=== PATIENT | male | born 1980 | race Caucasian/White ===

== ENCOUNTER 2016-09-29 13:14 | Inpatient (IN) | payer OTHER ==
[2016-09-29] MEDS ORDERED: SODIUM CHLORIDE 0.9% 1,000 ML IV STA (13:45)
[2016-09-29] MEDS ORDERED: RX INFO: IV CONTRAST WAS GIVEN 1 EACH MISC MISCELLANE PRN (13:45)
[2016-09-29] MEDS ORDERED: ONDANSETRON 4 MG/2 ML VIAL IVP STA (13:45)
[2016-09-29] MEDS ORDERED: HYDROmorphone 1 MG/ML 1 ML SYRINGE IVP STA (13:45)
--- NOTE | 2016-09-29 14:12 | ED ---
Abdominal Pain HPI - General Chief Complaint: Abdominal Pain Stated Complaint: Abd Pain Time Seen by Provider: 09/29/16 13:39 Source: patient, RN notes reviewed, old records reviewed Mode of arrival: ambulatory Limitations: no limitations - History of Present Illness Initial Comments: This is a 35-year-old male chief complaint of lower abdominal pain for the past day. Patient reports that the pain feels very sharp and stabbing. Patient reports it was worse when he was going over the bumps in the car. Denies any vomiting or feels nauseated. Reports he's had normal bowel movements. He denies any surgical history. Patient denies any previous issues with this before. Patient states he's had no fever or chills, dysuria, hematuria or melena or hematochezia. Patient reports last bowel movement was yesterday. He reports he did not eat anything today. - Related Data Home Medications Medication Instructions Recorded Confirmed Ibuprofen [Motrin] 200 - 400 mg PO Q6HR PRN 09/29/16 09/29/16 Allergies Allergy/AdvReac Type Severity Reaction Status Date / Time cefaclor [From Ceclor] Allergy Unknown Verified 09/29/16 14:00 Childhood Review of Systems ROS Statement: Those systems with pertinent positive or pertinent negative responses have been documented in the HPI. ROS Other: All systems not noted in ROS Statement are negative. Past Medical History Past Medical History: Cancer, Hypertension History of Any Multi-Drug Resistant Organisms: None Reported Additional Past Surgical History / Comment(s): pyloric stenosis Past Psychological History: Anxiety, Depression Smoking Status: Current every day smoker Past Alcohol Use History: Daily Past Drug Use History: None Reported General Exam - General Exam Comments Initial Comments: This is a 35-year-old male. Patient appears in discomfort. Limitations: no limitations General appearance: alert, in no apparent distress Head exam: Present: atraumatic, normocephalic, normal inspection Eye exam: Present: normal appearance, PERRL, EOMI. Absent: scleral icterus, conjunctival injection, periorbital swelling ENT exam: Present: normal exam, normal oropharynx, mucous membranes moist Neck exam: Present: normal inspection. Absent: tenderness, meningismus, lymphadenopathy Respiratory exam: Present: normal lung sounds bilaterally. Absent: respiratory distress, wheezes, rales, rhonchi, stridor Cardiovascular Exam: Present: regular rate, normal rhythm, normal heart sounds. Absent: systolic murmur, diastolic murmur, rubs, gallop, clicks GI/Abdominal exam: Present: tenderness (Diffuse lower abdominal tenderness.), guarding, normal bowel sounds. Absent: soft, distended, rebound, rigid Extremities exam: Present: normal inspection, full ROM, normal capillary refill. Absent: tenderness, pedal edema, joint swelling, calf tenderness Back exam: Present: normal inspection Neurological exam: Present: alert, oriented X3, CN II-XII intact Psychiatric exam: Present: normal affect, normal mood Skin exam: Present: warm, dry, intact, normal color. Absent: rash Course Vital Signs 09/29/16 09/29/16 09/29/16 13:32 14:45 15:44 Temperature 98.1 F Pulse Rate 87 88 101 H Respiratory 17 20 20 Rate Blood Pressure 127/62 132/74 133/72 O2 Sat by Pulse 99 99 96 Oximetry 09/29/16 09/29/16 16:45 17:44 Temperature Pulse Rate 98 93 Respiratory 16 16 Rate Blood Pressure 122/63 92/45 O2 Sat by Pulse 97 96 Oximetry Medical Decision Making - Medical Decision Making This is a 35-year-old male chief complaint of lower abdominal pain for the past day. Patient reports that the pain feels very sharp and stabbing. Patient reports it was worse when he was going over the bumps in the car. Denies any vomiting or feels nauseated. Reports he's had normal bowel movements. He denies any surgical history. Patient denies any previous issues with this before. Patient states he's had no fever or chills, dysuria, hematuria or melena or hematochezia. Patient reports last bowel movement was yesterday. She has significant tenderness on exam. Patient was given IV pain medication and fluids. Patient's CT shows acute diverticulitis. Patient started on IV Levaquin and Flagyl. Patient will be admitted for pain control antibiotics. Lab work showed elevated white count of 18.6. Patient agrees to the admission. Patient's history plan will comply. We will consult Dr. Calle. - Lab Data Result diagrams: 09/29/16 14:07 09/29/16 14:07 Lab Results 09/29/16 09/29/16 09/29/16 Range/Units 14:07 14:07 14:07 WBC 18.4 H (3.8-10.6) k/uL RBC 5.28 (4.30-5.90) m/uL Hgb 16.1 (13.0-17.5) gm/dL Hct 44.2 (39.0-53.0) % MCV 83.7 (80.0-100.0) fL MCH 30.4 (25.0-35.0) pg MCHC 36.3 (31.0-37.0) g/dL RDW 13.4 (11.5-15.5) % Plt Count 188 (150-450) k/uL Neutrophils % 90 % Lymphocytes % 4 % Monocytes % 5 % Eosinophils % 0 % Basophils % 0 % Neutrophils # 16.6 H (1.3-7.7) k/uL Lymphocytes # 0.8 L (1.0-4.8) k/uL Monocytes # 0.9 (0-1.0) k/uL Eosinophils # 0.1 (0-0.7) k/uL Basophils # 0.0 (0-0.2) k/uL PT (9.0-12.0) sec INR (<1.1) APTT (22.0-30.0) sec Sodium 139 (137-145) mmol/L Potassium 3.4 L (3.5-5.1) mmol/L Chloride 104 (98-107) mmol/L Carbon Dioxide 25 (22-30) mmol/L Anion Gap 10 mmol/L BUN 13 (9-20) mg/dL Creatinine 0.89 (0.66-1.25) mg/dL Est GFR (MDRD) Af Amer >60 (>60 ml/min/1.73 sqM) Est GFR (MDRD) Non-Af >60 (>60 ml/min/1.73 sqM) Glucose 99 (74-99) mg/dL Plasma Lactic Acid Alex 0.9 (0.7-2.0) mmol/L Calcium 9.3 (8.4-10.2) mg/dL Total Bilirubin 2.0 H (0.2-1.3) mg/dL AST 19 (17-59) U/L ALT 29 (21-72) U/L Alkaline Phosphatase 69 (38-126) U/L Total Protein 7.3 (6.3-8.2) g/dL Albumin 4.5 (3.5-5.0) g/dL Amylase <30 L (30-110) U/L Lipase 66 (23-300) U/L Urine Color Urine Appearance (Clear) Urine pH (5.0-8.0) Ur Specific [place] (1.001-1.035) Urine Protein (Negative) Urine Glucose (UA) (Negative) Urine Ketones (Negative) Urine Blood (Negative) Urine Nitrite (Negative) Urine Bilirubin (Negative) Urine Urobilinogen (<2.0) mg/dL Ur Leukocyte Esterase (Negative) Urine RBC (0-5) /hpf Urine WBC (0-5) /hpf Urine Mucus (None) /hpf 09/29/16 09/29/16 Range/Units 14:07 14:07 WBC (3.8-10.6) k/uL RBC (4.30-5.90) m/uL Hgb (13.0-17.5) gm/dL Hct (39.0-53.0) % MCV (80.0-100.0) fL MCH (25.0-35.0) pg MCHC (31.0-37.0) g/dL RDW (11.5-15.5) % Plt Count (150-450) k/uL Neutrophils % % Lymphocytes % % Monocytes % % Eosinophils % % Basophils % % Neutrophils # (1.3-7.7) k/uL Lymphocytes # (1.0-4.8) k/uL Monocytes # (0-1.0) k/uL Eosinophils # (0-0.7) k/uL Basophils # (0-0.2) k/uL PT 11.1 (9.0-12.0) sec INR 1.1 (<1.1) APTT 24.1 (22.0-30.0) sec Sodium (137-145) mmol/L Potassium (3.5-5.1) mmol/L Chloride (98-107) mmol/L Carbon Dioxide (22-30) mmol/L Anion Gap mmol/L BUN (9-20) mg/dL Creatinine (0.66-1.25) mg/dL Est GFR (MDRD) Af Amer (>60 ml/min/1.73 sqM) Est GFR (MDRD) Non-Af (>60 ml/min/1.73 sqM) Glucose (74-99) mg/dL Plasma Lactic Acid Alex (0.7-2.0) mmol/L Calcium (8.4-10.2) mg/dL Total Bilirubin (0.2-1.3) mg/dL AST (17-59) U/L ALT (21-72) U/L Alkaline Phosphatase (38-126) U/L Total Protein (6.3-8.2) g/dL Albumin (3.5-5.0) g/dL Amylase (30-110) U/L Lipase (23-300) U/L Urine Color Yellow Urine Appearance Cloudy (Clear) Urine pH 6.0 (5.0-8.0) Ur Specific [place] 1.018 (1.001-1.035) Urine Protein 1+ H (Negative) Urine Glucose (UA) Negative (Negative) Urine Ketones Negative (Negative) Urine Blood Negative (Negative) Urine Nitrite Negative (Negative) Urine Bilirubin Negative (Negative) Urine Urobilinogen <2.0 (<2.0) mg/dL Ur Leukocyte Esterase Trace H (Negative) Urine RBC 3 (0-5) /hpf Urine WBC 7 H (0-5) /hpf Urine Mucus Many H (None) /hpf - Radiology Data Radiology results: report reviewed CT abdomen and pelvis shows acute diverticulitis. Disposition Clinical Impression: Acute diverticulitis Disposition: HOME SELF-CARE Condition: Good Referrals: None,Stated [Primary Care Provider] - 1-2 days Time of Disposition: 16:14
[2016-09-29 14:32] LABS: Appearance,Urine Cloudy (Clear); Basophils % (A) 0 %; Bilirubin,Urine Negative (Negative); Eosinophils # (A) 0.1 k/uL (0-0.7); Eosinophils % (A) 0 %; Glucose,Urine (UA) Negative (Negative); HCT 44.2 % (39.0-53.0); HDW 2.69; HGB 16.1 gm/dL (13.0-17.5); Ketones,Urine Negative (Negative); Leukocyte Esterase,Urine Trace (Negative); Luc # (Auto) 0.07; Luc % (Auto) 0; Lymphocytes # (A) 0.8 k/uL (1.0-4.8); Lymphocytes % (A) 4 %; MCH 30.4 pg (25.0-35.0); MCHC 36.3 g/dL (31.0-37.0); MCV 83.7 fL (80.0-100.0); Mean Platelet Volume 7.4; Monocytes # (A) 0.9 k/uL (0-1.0); Monocytes % (A) 5 %; Mucus,Urine Many /hpf; Neutrophils # (A) 16.6 k/uL (1.3-7.7); Neutrophils % (A) 90 %; Nitrite,Urine Negative (Negative); Particle Count 24903; Protein,Urine 1+ (Negative); RBC 5.28 m/uL (4.30-5.90); RBC,Urine 3 /hpf (0-5); RDW 13.4 % (11.5-15.5); Specific Gravity,Urine 1.018 (1.001-1.035); UA Billing (MACRO vs. MICRO) MICRO; Urobilinogen,Urine <2.0 mg/dL (<2.0); WBC 18.4 k/uL (3.8-10.6); WBC (Perox) 17.57; WBC,Urine 7 /hpf (0-5)
[2016-09-29 14:35] LABS: ALT 29 U/L (21-72); AST 19 U/L (17-59); Alkaline Phosphatase 69 U/L (38-126); Amylase <30 U/L (30-110); Anion Gap 10 mmol/L; Blood Urea Nitrogen 13 mg/dL (9-20); Calcium 9.3 mg/dL (8.4-10.2); Carbon Dioxide 25 mmol/L (22-30); Chloride 104 mmol/L (98-107); Glucose 99 mg/dL (74-99); Non-African American GFR(MDRD) >60 (>60 ml/min/1.73 sqM); Potassium 3.4 mmol/L (3.5-5.1); Sodium 139 mmol/L (137-145); Total Protein 7.3 g/dL (6.3-8.2)
[2016-09-29 14:36] LABS: INR 1.1 (<1.1); Partial Thromboplastin Time 24.1 sec (22.0-30.0); Prothrombin Time 11.1 sec (9.0-12.0)
--- NOTE | 2016-09-29 14:49 | CT ---
EXAMINATION TYPE: CT abdomen pelvis w con DATE OF EXAM: 09/29/2016 COMPARISON: NONE HISTORY: Patient complains of periumbilical and generalized pelvic pain. CT DLP: 1244.3 mGycm Automated exposure control for dose reduction was used. TECHNIQUE: Helical acquisition of images from the lung bases through the pelvis have been completed. CONTRAST: Performed without Oral Contrast and with IV Contrast, patient injected with 100 mL of Omnipaque 300. FINDINGS: LUNG BASES: No significant abnormality is appreciated. AORTA: No significant abnormality is appreciated. LIVER/GB: There is a vague hypodensity in the posterior right lobe inferiorly measuring 8 mm there is indeterminate and could represent a small hemangioma. The gallbladder is normal. PANCREAS: No significant abnormality is seen. SPLEEN: No significant abnormality is seen. ADRENALS: No significant abnormality is seen. KIDNEYS: No significant abnormality is seen. REPRODUCTIVE ORGANS: No significant abnormality is seen BOWEL: Abnormal increased attenuation is present adjacent to the sigmoid colon, there is extensive d iverticular changes at this level, abnormal increased attenuation in the pericolonic fat . FREE AIR: No Free Air visible. ASCITES: Minimal free fluid in the pelvis. PELVIC ADENOPATHY: None visualized. RETROPERITONEAL ADENOPATHY: No Retroperitoneal Adenopathy visible. URINARY BLADDER: No significant abnormality is seen. OSSEOUS STRUCTURES: No significant abnormality is seen. IMPRESSION: FINDINGS COMPATIBLE WITH DIVERTICULITIS. NO EVIDENT ABSCESS OR EXTRALUMINAL AIR. ADDITIONAL FINDINGS ABOVE.
[2016-09-29] MEDS ORDERED: metroNIDAZOLE 500 MG TAB PO STA (15:49)
[2016-09-29] MEDS ORDERED: CIPROFLOXACIN HCL 500 MG TAB PO STA (15:49)
[2016-09-29] MEDS ORDERED: metroNIDAZOLE-NS PMX 500 MG in SALINE 1 100ML.BAG IVPB STA (15:57)
[2016-09-29] MEDS ORDERED: LEVOFLOXACIN 750MG-D5W PMX 750 MG in DEXTROSE/WATER 1 150ML.BAG IVPB STA (15:57)
[2016-09-29] MEDS ORDERED: SODIUM CHLORIDE 0.9% 1,000 ML IV ONE (15:58)
[2016-09-29] MEDS ORDERED: ACETAMINOPHEN TAB 325 MG TAB PO PRN (16:14)
[2016-09-29] MEDS ORDERED: NALOXONE 0.4 MG/ML 1 ML VIAL IV PRN (16:14)
[2016-09-29] MEDS ORDERED: ONDANSETRON 4 MG/2 ML VIAL IVP PRN (16:14)
[2016-09-29] MEDS ORDERED: HYDROmorphone 1 MG/ML 1 ML SYRINGE IV PRN (16:14)
[2016-09-29] MEDS ORDERED: KETOROLAC 30 MG/ML 1 ML VIAL IVP PRN (16:14)
[2016-09-29] MEDS: SODIUM CHLORIDE 0.9% 1,000 ML IV SCH (20:32)
[2016-09-29 22:41] VITALS: BMI 33.0
[2016-09-30 00:26] VITALS: RESP 18
[2016-09-30] MEDS: metroNIDAZOLE-NS PMX 500 MG in SALINE 1 100ML.BAG IVPB SCH ×2 (00:53→06:09)
[2016-09-30] MEDS: SODIUM CHLORIDE 0.9% 1,000 ML IV SCH ×2 (05:26→09:15)
[2016-09-30 07:44] VITALS: BP 128/75; PULSE 64; TEMP 97.8
[2016-09-30 10:09] LABS: Basophils # (A) 0.1 k/uL (0-0.2); Basophils % (A) 1 %; CH 29.6; Eosinophils # (A) 0.1 k/uL (0-0.7); Eosinophils % (A) 1 %; HDW 2.67; HGB 14.1 gm/dL (13.0-17.5); Luc # (Auto) 0.11; Luc % (Auto) 1; Lymphocytes # (A) 1.4 k/uL (1.0-4.8); Lymphocytes % (A) 11 %; MCH 30.7 pg (25.0-35.0); MCHC 36.1 g/dL (31.0-37.0); MCV 85.1 fL (80.0-100.0); Mean Platelet Volume 7.4; Monocytes # (A) 0.6 k/uL (0-1.0); Monocytes % (A) 5 %; Neutrophils # (A) 10.7 k/uL (1.3-7.7); Neutrophils % (A) 82 %; RBC 4.58 m/uL (4.30-5.90); RDW 13.5 % (11.5-15.5); WBC (Perox) 13.07
--- NOTE | 2016-09-30 10:30 | P.CONS ---
History of Present Illness - Reason for Consult Consult date: 09/30/16 Diverticulitis Requesting physician: Lisa Montez - History of Present Illness 35-year-old male with no past medical history presents with acute left lower abdominal pain 1 day without diarrhea, constipation, fever, chills, hematuria, hematemesis, or melena. Computed tomography scan reported sigmoid diverticulitis without abscess or free air. No history of diverticulosis or diverticulitis. No history of colonoscopy. White count 13.0-18.4. Hemoglobin 14.1. Review of Systems RConstitutional: Denies fever, chills, sweats, weight gain, or loss. HEENT: Negative for migraines, blurred vision or loss, earaches, drainage, tinnitus, oral mucosal lesions, dysphagia, or odynophagia. Cardiac: Negative for chest pain, arrhythmias, or palpitation. Respiratory: Negative for shortness of breath, hemoptysis, cough, or sputum production. Gastrointestinal: See HPI for pertinent findings. Genitourinary: Negative for hematuria, urgency, frequency, polyuria, dysuria, or penile discharge. Musculoskeletal: Negative for muscle aches, swelling, arthritis, and arthralgias. Neurologic: Negative for stroke or TIA. Endocrine: Negative for thyroid problems. Skin: Negative for rash or itching. Psychiatric: Negative history for depression and anxietyale All systems: negative (See HPI) Past Medical History Past Medical History: Cancer, Hypertension Additional Past Medical History / Comment(s): Pleurisy, pyloric stenosis (infant ) History of Any Multi-Drug Resistant Organisms: None Reported Additional Past Surgical History / Comment(s): pyloric stenosis Past Anesthesia/Blood Transfusion Reactions: No Reported Reaction Past Psychological History: Anxiety, Depression Smoking Status: Current every day smoker Past Alcohol Use History: Daily Past Drug Use History: None Reported - Past Family History Father History Unknown: Yes Family Medical History: Cancer, Dementia, Hypertension Additional Family Medical History / Comment(s): of skin cancer. Medications and Allergies Home Medications Medication Instructions Recorded Confirmed Type Ibuprofen [Motrin] 200 - 400 mg PO Q6HR PRN 09/29/16 09/29/16 History Allergies Allergy/AdvReac Type Severity Reaction Status Date / Time cefaclor [From Ceclor] Allergy Unknown Verified 09/29/16 14:00 Childhood Physical Exam Vitals: Vital Signs Temp Pulse Pulse Resp BP BP Pulse Ox 09/30/16 07:00 97.8 F 64 18 128/75 98 09/29/16 23:00 98.8 F 75 18 121/74 99 09/29/16 19:50 97.2 F L 82 16 123/69 95 09/29/16 18:04 98.1 F 93 16 92/45 96 09/29/16 17:44 93 16 92/45 96 09/29/16 16:45 98 16 122/63 97 09/29/16 15:44 101 H 20 133/72 96 09/29/16 14:45 88 20 132/74 99 09/29/16 13:32 98.1 F 87 17 127/62 99 Intake and Output 09/29/16 09/30/16 09/30/16 22:59 06:59 14:59 Intake Total 200 400 Balance 200 400 Intake: Oral 200 400 Other: Voiding Method Toilet # Voids 1 Weight 103.6 kg General appearance: The patient is alert, oriented, in no acute distress. HET: Head is normocephalic and atraumatic. Pupils are equal and reactive. Oropharynx is clear without lesions. Neck: Supple without lymphadenopathy. Trachea midline. Heart: S1 S2. Regular rate and rhythm. Lungs: No crackles or wheezes are heard. Abdomen: Soft, very mild tenderness left lower quadrant, nondistended with bowel sounds. No peritoneal signs. No palpable organomegaly or masses. Extremities: Normal skin color and turgor. No cyanosis, rash, ulceration, clubbing, or edema. Radial and pedal pulses are 2/4 bilaterally. Neurological: No focal deficits. Strength and sensation are grossly intact. Results CBC & Chem 7: 09/30/16 09:29 09/29/16 14:07 Labs: Abnormal Lab Results - Last 24 Hours (Table) 09/29/16 09/29/16 09/29/16 Range/Units 14:07 14:07 14:07 WBC 18.4 H (3.8-10.6) k/uL Neutrophils # 16.6 H (1.3-7.7) k/uL Lymphocytes # 0.8 L (1.0-4.8) k/uL Potassium 3.4 L (3.5-5.1) mmol/L Total Bilirubin 2.0 H (0.2-1.3) mg/dL Amylase <30 L (30-110) U/L Urine Protein 1+ H (Negative) Ur Leukocyte Esterase Trace H (Negative) Urine WBC 7 H (0-5) /hpf Urine Mucus Many H (None) /hpf 09/30/16 Range/Units 09:29 WBC 13.0 H (3.8-10.6) k/uL Neutrophils # 10.7 H (1.3-7.7) k/uL Lymphocytes # (1.0-4.8) k/uL Potassium (3.5-5.1) mmol/L Total Bilirubin (0.2-1.3) mg/dL Amylase (30-110) U/L Urine Protein (Negative) Ur Leukocyte Esterase (Negative) Urine WBC (0-5) /hpf Urine Mucus (None) /hpf CT scan - abdomen: report reviewed (Dr. Montalvo) Assessment and Plan (1) Acute diverticulitis Narrative/Plan: Acute sigmoid diverticulitis without abscess. Status: Acute Plan: 1. Clear liquid diet advanced slowly to full liquid/soft low residue as tolerated. 2. IV antibiotics. Upon discharge Cipro/Flagyl x 1 week. Return to GI office in 3 weeks for reevaluation and discussion of outpatient colonoscopy in 4-6 weeks. 3. Discharge per medicine. Patient is requesting discharge today. Thank you for this kind referral and the opportunity to participate in the care of your patient. This consultation was discussed with Dr. Montalvo. The impression and plan of care have been directed as dictated.
--- NOTE | 2016-09-30 11:58 | P.HPIM ---
History of Present Illness 35-year-old male with no past medical history presents with acute left lower abdominal pain 1 day without diarrhea, constipation, fever, chills, hematuria, hematemesis, or melena. Patient's pain was severe about 8-9 x 10 in severity. Patient denied any fever at home. Computed tomography scan reported sigmoid diverticulitis without abscess or free air. No history of diverticulosis or diverticulitis. No history of colonoscopy. Patient has significant improvement in his symptoms and wanted to go home. Patient's diet will be advanced to soft diet and patient discharged on 1 week of antibiotics. Patient was asked to use soft diet for about a week followed by high fiber diet. To prevent any future episodes of diverticulitis. Review of Systems REVIEW OF SYSTEMS: CONSTITUTIONAL: No fever, no malaise, no fatigue. HEENT: No recent visual problems or hearing problems. Denied any sore throat. CARDIOVASCULAR: No chest pain, orthopnea, PND, no palpitations, no syncope. PULMONARY: No shortness of breath, no cough, no hemoptysis. GASTROINTESTINAL: No diarrhea, no nausea, no vomiting, . Normoactive bowel sounds. NEUROLOGICAL: No headaches, no weakness, no numbness. HEMATOLOGICAL: Denies any bleeding or petechiae. GENITOURINARY: Denies any burning micturition, frequency, or urgency. MUSCULOSKELETAL/RHEUMATOLOGICAL: Denies any joint pain, swelling, or any muscle pain. ENDOCRINE: Denies any polyuria or polydipsia. The rest of the 14-point review of systems is negative. Past Medical History Past Medical History: Cancer, Hypertension Additional Past Medical History / Comment(s): Pleurisy, pyloric stenosis ( ) History of Any Multi-Drug Resistant Organisms: None Reported Additional Past Surgical History / Comment(s): pyloric stenosis Past Anesthesia/Blood Transfusion Reactions: No Reported Reaction Past Psychological History: Anxiety, Depression Smoking Status: Current every day smoker Past Alcohol Use History: Daily Past Drug Use History: None Reported - Past Family History Father History Unknown: Yes Family Medical History: Cancer, Dementia, Hypertension Additional Family Medical History / Comment(s): of skin cancer. Medications and Allergies Home Medications Medication Instructions Recorded Confirmed Type Ibuprofen [Motrin] 200 - 400 mg PO Q6HR PRN 09/29/16 09/29/16 History Allergies Allergy/AdvReac Type Severity Reaction Status Date / Time cefaclor [From [facility]] Allergy Unknown Verified 09/29/16 14:00 Childhood Physical Exam Vitals: Vital Signs Temp Pulse Pulse Resp BP BP Pulse Ox 09/30/16 07:00 97.8 F 64 18 128/75 98 09/29/16 23:00 98.8 F 75 18 121/74 99 09/29/16 19:50 97.2 F L 82 16 123/69 95 09/29/16 18:04 98.1 F 93 16 92/45 96 09/29/16 17:44 93 16 92/45 96 09/29/16 16:45 98 16 122/63 97 09/29/16 15:44 101 H 20 133/72 96 09/29/16 14:45 88 20 132/74 99 09/29/16 13:32 98.1 F 87 17 127/62 99 Intake and Output 09/29/16 09/30/16 09/30/16 22:59 06:59 14:59 Intake Total 200 400 Balance 200 400 Intake: Oral 200 400 Other: Voiding Method Toilet # Voids 1 Weight 103.6 kg PHYSICAL EXAMINATION: GENERAL: The patient is alert and oriented x3, not in any acute distress. Well developed, well nourished. HEENT: Pupils are round and equally reacting to light. EOMI. No scleral icterus. No conjunctival pallor. Normocephalic, atraumatic. No pharyngeal erythema. No thyromegaly. CARDIOVASCULAR: S1 and S2 present. No murmurs, rubs, or gallops. PULMONARY: Chest is clear to auscultation, no wheezing or crackles. ABDOMEN: Soft, minimal tenderness in the left lower quadrant., nondistended, normoactive bowel sounds. No palpable organomegaly. MUSCULOSKELETAL: No joint swelling or deformity. EXTREMITIES: No cyanosis, clubbing, or pedal edema. NEUROLOGICAL: Gross neurological examination did not reveal any focal deficits. SKIN: No rashes. Results CBC & Chem 7: 09/30/16 09:29 09/29/16 14:07 Labs: Abnormal Lab Results - Last 24 Hours (Table) 09/29/16 09/29/16 09/29/16 Range/Units 14:07 14:07 14:07 WBC 18.4 H (3.8-10.6) k/uL Neutrophils # 16.6 H (1.3-7.7) k/uL Lymphocytes # 0.8 L (1.0-4.8) k/uL Potassium 3.4 L (3.5-5.1) mmol/L Total Bilirubin 2.0 H (0.2-1.3) mg/dL Amylase <30 L (30-110) U/L Urine Protein 1+ H (Negative) Ur Leukocyte Esterase Trace H (Negative) Urine WBC 7 H (0-5) /hpf Urine Mucus Many H (None) /hpf 09/30/16 Range/Units 09:29 WBC 13.0 H (3.8-10.6) k/uL Neutrophils # 10.7 H (1.3-7.7) k/uL Lymphocytes # (1.0-4.8) k/uL Potassium (3.5-5.1) mmol/L Total Bilirubin (0.2-1.3) mg/dL Amylase (30-110) U/L Urine Protein (Negative) Ur Leukocyte Esterase (Negative) Urine WBC (0-5) /hpf Urine Mucus (None) /hpf Thrombosis Risk Factor Assmnt - Choose All That Apply Any of the Below Risk Factors Present?: No Other Risk Factors: No Other congenital or acquired thrombophilia - If yes, enter type in comment: No Thrombosis Risk Factor Assessment Level: Very Low Risk Assessment and Plan Plan: #1 sigmoid diverticulitis: Patient has significant improvement with IV antibiotics since yesterday. Patient will be discharged today on oral antivirals for about a week. And dietary counseling as mentioned above. 2 leukocytosis: Secondary to diverticulitis as mentioned above. #3 obesity: Counseling was provided.
--- NOTE | 2016-09-30 11:59 | P.DS ---
Providers Date of admission: 09/29/16 16:56 Attending physician: Lisa Montez Consults: 09/29/16 16:14 Consult Physician Stat Consulting Provider: Bossman Montalvo Consult Reason/Comments: Acute Diverticulitis Do you want consulting provider notified?: Yes, Notify in am Primary care physician: Stated None Hospital Course: Please refer to HPI Patient Condition at Discharge: Good Plan - Discharge Summary New Discharge Prescriptions: New Ciprofloxacin HCl [Cipro] 500 mg PO Q12HR #14 tablet metroNIDAZOLE [Flagyl] 500 mg PO TID #21 tab No Action Ibuprofen [Motrin] 200 - 400 mg PO Q6HR PRN PRN Reason: Pain Discharge Medication List Ibuprofen [Motrin] 200 - 400 mg PO Q6HR PRN 09/29/16 [History] Ciprofloxacin HCl [Cipro] 500 mg PO Q12HR #14 tablet 09/30/16 [Rx] metroNIDAZOLE [Flagyl] 500 mg PO TID #21 tab 09/30/16 [Rx] Follow up Appointment(s)/Referral(s): Elen Joe MD [STAFF PHYSICIAN] - 11/18/16 12:00 pm None,Stated [Primary Care Provider] - 1-2 days Patient Instructions/Handouts: Diverticulitis (DC), Diverticulitis Diet (DC) Activity/Diet/Wound Care/Special Instructions: No smoking, cessation information provided. Discharge Disposition: HOME SELF-CARE
[2016-09-30] MEDS ORDERED: LEVOFLOXACIN 750MG-D5W PMX 750 MG in DEXTROSE/WATER 1 150ML.BAG IVPB SCH (16:00)
== END 2016-09-30 11:28 | disposition home or self-care (01) | DRG 392 ==
LOC: EC 13:14 → 4MS4W 16:56
PROVIDERS: ADMIT Internal Medicine; ATTEND Internal Medicine
DX: K57.32 Diverticulitis of large intestine without perforation or abscess without bleeding (principal); I10 Essential (primary) hypertension; E66.9 Obesity, unspecified; Z71.3 Dietary counseling and surveillance; Z68.31 Body mass index [BMI] 31.0-31.9, adult; Z88.1 Allergy status to other antibiotic agents; F17.200 Nicotine dependence, unspecified, uncomplicated; Z86.59 Personal history of other mental and behavioral disorders
CPT/HCPCS: 36415; 74177; 80053; 81001; 82150; 83605; 83690; 85025; 85610; 85730; 87040; 96361; 96365; 96366; 96375; 99285

== ENCOUNTER 2016-12-31 09:21 | Day surgery (SDC) | payer OTHER ==
[2016-12-29 14:23] VITALS: BMI 28.3
[~2016-12-31 09:21] MED LIST: LACTATED RINGERS 1,000 ML IV SCH
[2016-12-31 10:10] VITALS: TEMP 98.3
[2016-12-31] MEDS ORDERED: LIDOCAINE 1% 20 ML VIAL (10MG/ML) FOR IV START INTRADERMA ONE (10:15)
[2016-12-31] MEDS ORDERED: PROPOFOL 10 MG/ML 20 ML VIAL IV ONE (11:01)
--- NOTE | 2016-12-31 11:14 | P.PCN ---
Date of Procedure: 12/31/16 Procedure(s) Performed: BRIEF HISTORY: Patient is a 36-year-old pleasant white male, scheduled for an elective colonoscopy as a part of evaluation of recent episode of acute sigmoid diverticulitis for which he was hospitalized 6 weeks ago. He was treated with] for 10 days. He is doing well now. PROCEDURE PERFORMED: Colonoscopy with biopsy. PREOPERATIVE DIAGNOSIS: Recent episode of acute sigmoid diverticulitis. IV sedation per Anesthesia. PROCEDURE: After informed consent was obtained, the patient, was brought into the endoscopy unit. IV sedation was administered by Anesthesia under continuous monitoring. Digital rectal examination was normal. Initially the Olympus CF- 160 flexible video colonoscope was then inserted in the rectum, gradually advanced into the cecum without any difficulty. Careful examination was performed as the scope was gradually being withdrawn. Ileocecal valve and the appendiceal orifice were visualized and appeared normal. Prep was excellent. Mucosa of the cecum, ascending colon, appeared normal. In the transverse colon there was a 5 mm polyp that was removed by biopsy. The rest of the transverse colon, descending colon, sigmoid colon, and rectum appeared normal. Scattered sigmoid diverticulosis seen. Retroflexion was performed in the rectum and no lesions were seen. The patient tolerated the procedure well. IMPRESSION: 5 mm transverse colon polyp status post removal by biopsy. Scattered sigmoid diverticulosis with no evidence of acute diverticulitis RECOMMENDATIONS: Findings of this examination were discussed with the patient family. He was advised to follow with the biopsy results. If the biopsy shows a tubular adenoma, he can have a repeat colonoscopy in 5 years.
[2016-12-31 11:41] VITALS: BP 127/69; PULSE 58; RESP 16
== END 2016-12-31 11:42 | disposition home or self-care (01) ==
LOC: ORWHC2ENDO 09:21
PROVIDERS: ATTEND Internal Medicine Gastroenterology
DX: D12.3 Benign neoplasm of transverse colon (principal); K57.30 Diverticulosis of large intestine without perforation or abscess without bleeding; F17.200 Nicotine dependence, unspecified, uncomplicated; Z79.899 Other long term (current) drug therapy; Z88.1 Allergy status to other antibiotic agents
CPT/HCPCS: 88305; 45380; J2704

== ENCOUNTER 2018-11-30 20:48 | Emergency (ER) | payer BC, OTHER ==
[2018-11-30] MEDS ORDERED: SODIUM CHLORIDE 0.9% 1,000 ML IV STA (20:58)
--- NOTE | 2018-11-30 21:30 | ED ---
Chest Pain HPI - General Chief Complaint: Chest Pain Stated Complaint: Chest pain Time Seen by Provider: 11/30/18 20:57 Source: patient, RN notes reviewed, old records reviewed Mode of arrival: ambulatory Limitations: no limitations - History of Present Illness Initial Comments: This is a 38-year-old male the ER for evaluation presents today for evaluation regards to nonspecific chest pain anterior sternal pain is been wrapping around his rib cage. states he's had symptoms for quite some time going back 3 weeks. He has had visits urgent care and primary care for evaluation regarding traumatic injury as well as any other significant cause. Patient has no significant medical history aside from diverticulitis no surgical history. No fevers no cough or congestion no travel history. Patient does not get diaphoresis with the pain he gets short of breath he feels like he can't take a deep breath. Otherwise patient's currently asymptomatic but he did have the pain earlier while watching TV and it was pretty severe. MD Complaint: chest pain -: week(s) Onset: during rest, during exertion, other (May have a. After mild trauma) Pain Location: substernal, epigastric Severity: mild Severity scale (1-10): 4 Quality: tightness Consistency: intermittent, now resolved Improves With: nothing Worsens With: nothing Context: other Anginal Symptoms: other (None) Other Symptoms: other (None) Treatments Prior to Arrival: other (None) - Related Data Home Medications Medication Instructions Recorded Confirmed Ibuprofen [Motrin Ib] 800 mg PO TID PRN 11/30/18 11/30/18 Allergies Allergy/AdvReac Type Severity Reaction Status Date / Time cefaclor [From Ceclor] Allergy Unknown Verified 11/30/18 21:28 Childhood Review of Systems ROS Statement: Those systems with pertinent positive or pertinent negative responses have been documented in the HPI. ROS Other: All systems not noted in ROS Statement are negative. EKG Findings - EKG Comments: EKG Findings:: EKG shows normal sinus rhythm rate of 60, MS 160, QRS 94, QTc 412 Past Medical History Past Medical History: Cancer, Hypertension Additional Past Medical History / Comment(s): Pleurisy, pyloric stenosis (infant). RECENT DIVERTICULOSIS History of Any Multi-Drug Resistant Organisms: None Reported Additional Past Surgical History / Comment(s): pyloric stenosis SX INFANT Past Anesthesia/Blood Transfusion Reactions: No Reported Reaction Past Psychological History: Depression Smoking Status: Current every day smoker Past Alcohol Use History: Occasional Past Drug Use History: None Reported - Past Family History Father History Unknown: Yes Family Medical History: Cancer, Dementia, Hypertension Additional Family Medical History / Comment(s): of skin cancer. General Exam Limitations: no limitations General appearance: alert, in no apparent distress Head exam: Present: atraumatic, normocephalic, normal inspection Eye exam: Present: normal appearance, EOMI. Absent: scleral icterus, conjunctival injection, periorbital swelling ENT exam: Present: normal exam, mucous membranes moist Neck exam: Present: normal inspection. Absent: tenderness, meningismus, lymphadenopathy Respiratory exam: Present: normal lung sounds bilaterally. Absent: respiratory distress, wheezes, rales, rhonchi, stridor Cardiovascular Exam: Present: regular rate, normal rhythm, normal heart sounds. Absent: systolic murmur, diastolic murmur, rubs, gallop, clicks GI/Abdominal exam: Present: soft, normal bowel sounds. Absent: distended, tenderness, guarding, rebound, rigid Extremities exam: Present: normal inspection, full ROM, normal capillary refill. Absent: tenderness, pedal edema, joint swelling, calf tenderness Back exam: Present: normal inspection Neurological exam: Present: alert, oriented X3, CN II-XII intact Psychiatric exam: Present: normal affect, normal mood Skin exam: Present: warm, dry, intact, normal color. Absent: rash Course Vital Signs 11/30/18 20:50 Temperature 98 F Pulse Rate 68 Respiratory 20 Rate Blood Pressure 174/98 O2 Sat by Pulse 99 Oximetry - Reevaluation(s) Reevaluation #1: 11/30/18 21:28 Medical records reviewed Reevaluation #2: 11/30/18 21:28 Patient remains without pain Reevaluation #3: 11/30/18 22:04 Patient remains without chest pain Chest Pain MDM - MDM 38 male the ER for evaluation patient resents today for evaluation of chest pain. Nonspecific abdominal pain anterior wall chest pain, CT labwork is negative. Troponin negative EKG normal. Patient can be discharged home Disposition Clinical Impression: Atypical chest pain, Chest pain Disposition: HOME SELF-CARE Condition: Good Instructions (If sedation given, give patient instructions): Chest Pain (ED) Is patient prescribed a controlled substance at d/c from ED?: No Referrals: Nedic,Stephan, MD [Primary Care Provider] - 1-2 days
[2018-11-30 21:35] LABS: Basophils # (A) 0.1 k/uL (0-0.2); Basophils % (A) 1 %; Eosinophils # (A) 0.5 k/uL (0-0.7); Eosinophils % (A) 5 %; HCT 40.7 % (39.0-53.0); HGB 14.3 gm/dL (13.0-17.5); Lymphocytes # (A) 1.8 k/uL (1.0-4.8); Lymphocytes % (A) 21 %; MCH 30.4 pg (25.0-35.0); MCHC 35.2 g/dL (31.0-37.0); MCV 86.6 fL (80.0-100.0); Mean Platelet Volume 6.9; Monocytes # (A) 0.5 k/uL (0-1.0); Monocytes % (A) 6 %; Neutrophils # (A) 5.7 k/uL (1.3-7.7); Neutrophils % (A) 66 %; Platelet Count 198 k/uL (150-450); RBC 4.71 m/uL (4.30-5.90); RDW 13.2 % (11.5-15.5); WBC 8.6 k/uL (3.8-10.6)
[2018-11-30 21:47] LABS: D-Dimer 0.38 mg/L FEU (<0.60); INR 0.9 (<1.2); Partial Thromboplastin Time 25.8 sec (22.0-30.0)
[2018-11-30 21:50] LABS: ALT 20 U/L (21-72); AST 21 U/L (17-59); African American GFR (CKD) >90 (>60 ml/min/1.73 sqM); Albumin 4.3 g/dL (3.5-5.0); Alkaline Phosphatase 58 U/L (38-126); Anion Gap 9 mmol/L; Blood Urea Nitrogen 20 mg/dL (9-20); Calcium 9.5 mg/dL (8.4-10.2); Carbon Dioxide 27 mmol/L (22-30); Chloride 106 mmol/L (98-107); Creatine Kinase 62 U/L (55-170); Glucose 95 mg/dL (74-99); Magnesium 2.3 mg/dL (1.6-2.3); Potassium 3.9 mmol/L (3.5-5.1); Sodium 142 mmol/L (137-145); Total Bilirubin 0.8 mg/dL (0.2-1.3)
--- NOTE | 2018-11-30 21:56 | CT ---
EXAMINATION TYPE: CT angio chest DATE OF EXAM: 11/30/2018 9:46 PM COMPARISON: None HISTORY: Chest pain x2 weeks CT DLP: 571.7 mGycm Automated exposure control for dose reduction was used. CONTRAST: CTA scan of the thorax is performed with IV Contrast, patient injected with 100 mL of Isovue 370, pul monary embolism protocol. There are 3-D post processed images.. FINDINGS: The lungs are clear of consolidation. There is no evidence of a pulmonary mass. There is no pleural e ffusion. There is no pericardial effusion. Heart size is normal. There are no hilar masses. There is no mediastinal adenopathy. There is normal contrast opacification of the pulmonary arteries. I see no filling defect. There is no sign of aortic aneurysm or dissection. Thoracic spine is intact. There is no compression fracture. IMPRESSION: NEGATIVE EXAM. NO EVIDENCE OF PULMONARY EMBOLISM.
[2018-11-30 22:47] VITALS: BP 137/87; PULSE 56; RESP 18; TEMP 98
== END 2018-11-30 22:50 | disposition home or self-care (01) ==
LOC: EC 20:48
DX: R07.89 Other chest pain (principal); I10 Essential (primary) hypertension; F17.200 Nicotine dependence, unspecified, uncomplicated; Z88.1 Allergy status to other antibiotic agents
CPT/HCPCS: 36415; 93005; 85379; 83880; 80053; 82550; 83690; 83735; 84484; 85025; 85610; 85730; 71275; 99285; 96360; Q9967

== ENCOUNTER → 2022-11-17 | Outpatient (CLI) | payer OTHER | END | disposition home or self-care (01) | LOC: LABWHC1 09:16 | PROVIDERS: ATTEND Ophthalmology | DX: Z53.9 Procedure and treatment not carried out, unspecified reason (principal) ==

== ENCOUNTER 2023-04-03 11:29 | Emergency (ER) | payer BC ==
--- NOTE | 2023-04-03 11:47 | ED ---
ENT HPI - General Source: patient, RN notes reviewed Mode of arrival: ambulatory Limitations: no limitations <Miladis Bauer - Last Filed: 04/03/23 11:45> <Ilana Renee - Last Filed: 04/03/23 21:38> - General Chief complaint: ENT Stated complaint: R eye and head pain Time Seen by Provider: 04/03/23 11:45 - History of Present Illness Initial comments: Patient is a 42-year-old male presented ER with chief complaint of headache and right eye pain. Patient states he has been treated for this for about 3 weeks with steroids and antibiotics. Patient states it is just been getting worse. Patient denies any known fevers or chills. (Miladis Bauer) 42-year-old male with past medical history of central retinal vein occlusion who presents to the emergency department with right-sided headache. States that he has had worsening right-sided pain for the past 3 weeks. He has seen his [place] [facility] doctor several times and was diagnosed with a sinus infection. He has been taking steroids and antibiotics without any improvement. States that the pain waxes and wanes. The pain was so severe today that he came into the emergency department for evaluation. He normally does not take anything for pain. Patient does admit that he had visual loss in that right eye 8 months ago. He suffered a central retinal vein occlusion. He has been following with a retinal specialist out [facility]. He has had laser treatments and injections but has completely lost his vision. He states that he does perceive a little bit of light and this has not changed. Eye is noted to be injected whi ch he states has been new over the past 3 weeks. He denies any neck pain. No fevers. No nausea or vomiting. He denies fevers. He currently takes an eyedrop and has been compliant with the medication. No other alleviating, precipitating or modifying factors (Ilana Renee) - Related Data Home Medications Medication Instructions Recorded Confirmed Ibuprofen [Motrin Ib] 800 mg PO TID PRN 11/30/18 11/30/18 Previous Rx's Medication Instructions Recorded Brimonidine Tartrate [Alphagan P 1 drops RIGHT EYE BID #5 ml 04/03/23 0.2% Ophth Soln] Timolol 0.5% Ophth Soln [Timoptic 1 drops RIGHT EYE BID #15 ml 04/03/23 0.5% Ophth Soln] acetaZOLAMIDE [Diamox Sequels] 500 mg PO BID #14 cap 04/03/23 Allergies Allergy/AdvReac Type Severity Reaction Status Date / Time cefaclor [From Ceclor] Allergy Unknown Verified 04/03/23 11:37 Childhood Review of Systems ROS Other: All systems not noted in ROS Statement are negative. <Miladis Bauer - Last Filed: 04/03/23 11:45> ROS Other: All systems not noted in ROS Statement are negative. <Ilana Renee - Last Filed: 04/03/23 21:38> ROS Statement: Those systems with pertinent positive or pertinent negative responses have been documented in the HPI. Past Medical History Past Medical History: Cancer, Hypertension Additional Past Medical History / Comment(s): Pleurisy, pyloric stenosis (infant). RECENT DIVERTICULOSIS History of Any Multi-Drug Resistant Organisms: None Reported Additional Past Surgical History / Comment(s): pyloric stenosis SX Past Anesthesia/Blood Transfusion Reactions: No Reported Reaction Past Psychological History: Depression Past Alcohol Use History: Occasional Past Drug Use History: None Reported - Past Family History Father History Unknown: Yes Family Medical History: Cancer, Dementia, Hypertension Additional Family Medical History / Comment(s): of skin cancer. <Miladis Bauer - Last Filed: 04/03/23 11:45> General Exam Limitations: no limitations <Miladis Bauer - Last Filed: 04/03/23 11:45> - General Exam Comments Initial Comments: Visual Physical Exam Vital signs reviewed General: Well-appearing, nontoxic, no acute distress. Head: Normocephalic, atraumatic Eyes: PERRLA, EOMI, right sclera injection no noticeable drainage ENT: Airway patent Chest: Nonlabored breathing Skin: No visual rash, normal skin tone Neuro: Alert and oriented 3 Musculoskeletal: No gross abnormalities (Miladis Bauer) Course Vital Signs 04/03/23 04/03/23 04/03/23 11:34 14:52 16:56 Temperature 98.2 F 98 F 98.2 F Pulse Rate 85 71 74 Respiratory 16 16 18 Rate Blood Pressure 158/93 112/71 122/79 O2 Sat by Pulse 98 96 97 Oximetry Medical Decision Making <Miladis Bauer - Last Filed: 04/03/23 11:45> - Lab Data Result diagrams: 04/03/23 13:32 04/03/23 13:32 <VíctorIlana Suleiman - Last Filed: 04/03/23 21:38> - Medical Decision Making I performed the quick note portion of the exam. Electronically signed by Miladis Bauer PA-C (Miladis Bauer) Was pt. sent in by a medical professional or institution (YOLY Richards, CHIEF EXECUTIVE OFFICER, urgent care, hospital, or alf...) When possible be specific @ -No Did you speak to anyone other than the patient for history (EMS, parent, family, police, friend...)? What history was obtained from this source @ -No Did you review nursing and triage notes (agree or disagree)? Why? @ -I reviewed and agree with nursing and triage notes Were old charts reviewed (outside hosp., previous admission, EMS record, old EKG, old radiological studies, urgent care reports/EKG's, alf records)? Report findings @ -No old charts were reviewed Differential Diagnosis (chest pain, altered mental status, abdominal pain women, abdominal pain men, vaginal bleeding, weakness, fever, dyspnea, syncope, headache, dizziness, GI bleed, back pain, seizure, CVA, palpatations, mental health, musculoskeletal)? @ -Differential Headache: Migraine, tension, cluster, carbon monoxide, central venous thrombosis, pension karma temporal arteritis, acute closure glaucoma, intercranial hemorrhage, mastoiditis, sinusitis, head injury, this is not meant to be an all-inclusive list. EKG interpreted by me (3pts min.). @ -As above X-rays interpreted by me (1pt min.). @ -None done CT interpreted by me (1pt min.). @ -None done U/S interpreted by me (1pt. min.). @ -None done What testing was considered but not performed or refused? (CT, X-rays, U/S, la bs)? Why? @ -None What meds were considered but not given or refused? Why? @ -None Did you discuss the management of the patient with other professionals (professionals i.e. YOLY Richards, CHIEF EXECUTIVE OFFICER, lab, RT, psych nurse, health and social care teacher, swimming pool maintenance supervisor, teacher, light armored vehicle officer, manager case)? Give summary @ -No Was smoking cessation discussed for >3mins.? @ -No Was critical care preformed (if so, how long)? @ -No Were there social determinants of health that impacted care today? How? (Homelessness, low income, unemployed, alcoholism, drug addiction, transportation, low edu. Level, literacy, decrease access to med. care, halfway, rehab)? @ -No Was there de-escalation of care discussed even if they declined (Discuss DNR or withdrawal of care, Hospice)? DNR status @ -No What co-morbidities impacted this encounter? (DM, HTN, Smoking, COPD, CAD, Cancer, CVA, ARF, Chemo, Hep., AIDS, mental health diagnosis, sleep apnea, morbid obesity)? @ -None Was patient admitted / discharged? Hospital course, mention meds given and route, prescriptions, significant lab abnormalities, going to OR and other pertinent info. @ -Upon arrival patient was placed into room 33. Thorough history and physical exam was performed. IV is established. Laboratory studies are conducted. CT is performed of the patient's head. I did measure the pressure in the patient's right eye. Right eye has a pressure of 44. Left eye has a pressure of 11. I did order a dose of acetazolamide, timolol and alphagan. Pressures are rechecked and have gone down to 35. He does have improvement in his pain from 10 out of 10-5 out of 10. I did discuss the case with Dr. winston. Patient may be discharged home if his pain is improved. He does have an appointment with his retina specialist on Tuesday. He'll be discharged home on acetazolamide, timolol and alphagan drops twice daily. Return for any new or worsening sym ptoms. Patient understood this and was discharged in stable condition Undiagnosed new problem with uncertain prognosis? @ -No Drug Therapy requiring intensive monitoring for toxicity (Heparin, Nitro, Insulin, Cardizem)? @ -No Were any procedures done? @ -No Diagnosis/symptom? @ -default Acute, or Chronic, or Acute on Chronic? @ -default Uncomplicated (without systemic symptoms) or Complicated (systemic symptoms)? @ -default Side effects of treatment? @ -No Exacerbation, Progression, or Severe Exacerbation? @ -No Poses a threat to life or bodily function? How? (Chest pain, [place], [place], pneumonia, PE, COPD, DKA, ARF, appy, cholecystitis, CVA, Diverticulitis, Homicidal, Suici dewayne, threat to staff... and all critical care pts) @ -No (Ilana Renee) - Lab Data Lab Results 04/03/23 04/03/23 Range/Units 13:32 13:32 WBC 14.7 H (3.8-10.6) k/uL RBC 5.17 (4.30-5.90) m/uL Hgb 15.7 (13.0-17.5) gm/dL Hct 45.8 (39.0-53.0) % MCV 88.5 (80.0-100.0) fL MCH 30.4 (25.0-35.0) pg MCHC 34.4 (31.0-37.0) g/dL RDW 13.1 (11.5-15.5) % Plt Count 205 (150-450) k/uL MPV 8.0 Neutrophils % 82 % Lymphocytes % 11 % Monocytes % 5 % Eosinophils % 2 % Basophils % 1 % Neutrophils # 12.0 H (1.3-7.7) k/uL Lymphocytes # 1.6 (1.0-4.8) k/uL Monocytes # 0.7 (0-1.0) k/uL Eosinophils # 0.2 (0-0.7) k/uL Basophils # 0.1 (0-0.2) k/uL Sodium 140 (137-145) mmol/L Potassium 3.7 (3.5-5.1) mmol/L Chloride 103 (98-107) mmol/L Carbon Dioxide 26 (22-30) mmol/L Anion Gap 11 mmol/L BUN 12 (9-20) mg/dL Creatinine 0.73 (0.66-1.25) mg/dL Est GFR (CKD-EPI)AfAm >90 (>60 ml/min/1.73 sqM) Est GFR (CKD-EPI)NonAf >90 (>60 ml/min/1.73 sqM) Glucose 93 (74-99) mg/dL Calcium 9.3 (8.4-10.2) mg/dL Total Bilirubin 0.9 (0.2-1.3) mg/dL AST 19 (17-59) U/L ALT 30 (4-49) U/L Alkaline Phosphatase 66 (38-126) U/L Total Protein 7.1 (6.3-8.2) g/dL Albumin 4.3 (3.5-5.0) g/dL Disposition <Miladis Bauer - Last Filed: 04/03/23 11:45> Is patient prescribed a controlled substance at d/c from ED?: No Time of Disposition: 16:44 <Ilana Renee - Last Filed: 04/03/23 21:38> Clinical Impression: Eye pain, Subacute closed-angle glaucoma Disposition: HOME SELF-CARE Condition: Stable Instructions (If sedation given, give patient instructions): Glaucoma (ED) Additional Instructions: Please use the timolol and alphagan eye drops twice a day. Take the acetazolamide twice daily. Follow up with your retina specialist and return for any new or worsening symptoms. Prescriptions: Brimonidine Tartrate [Alphagan P 0.2% Ophth Soln] 1 drops RIGHT EYE BID #5 ml acetaZOLAMIDE [Diamox Sequels] 500 mg PO BID #14 cap Timolol 0.5% Ophth Soln [Timoptic 0.5% Ophth Soln] 1 drops RIGHT EYE BID #15 ml Referrals: Stephan Leonard MD [Primary Care Provider] - 1-2 days Lucho Winston MD [STAFF PHYSICIAN] - 1-2 days
[2023-04-03] MEDS ORDERED: HYDROmorphone 1 MG/ML 1 ML SYRINGE IVP STA (13:28)
[2023-04-03] MEDS ORDERED: PROPARACAINE 0.5% OPHTH DROPS 15 ML BTL RIGHT EYE STA (13:29)
[2023-04-03 13:51] LABS: Basophils # (A) 0.1 k/uL (0-0.2); Basophils % (A) 1 %; Eosinophils # (A) 0.2 k/uL (0-0.7); Eosinophils % (A) 2 %; HCT 45.8 % (39.0-53.0); HGB 15.7 gm/dL (13.0-17.5); Lymphocytes # (A) 1.6 k/uL (1.0-4.8); Lymphocytes % (A) 11 %; MCH 30.4 pg (25.0-35.0); MCHC 34.4 g/dL (31.0-37.0); MCV 88.5 fL (80.0-100.0); Monocytes # (A) 0.7 k/uL (0-1.0); Monocytes % (A) 5 %; Neutrophils % (A) 82 %; Platelet Count 205 k/uL (150-450); RBC 5.17 m/uL (4.30-5.90); RDW 13.1 % (11.5-15.5); WBC 14.7 k/uL (3.8-10.6)
[2023-04-03 13:55] LABS: ALT 30 U/L (4-49); AST 19 U/L (17-59); African American GFR (CKD) >90 (>60 ml/min/1.73 sqM); Albumin 4.3 g/dL (3.5-5.0); Alkaline Phosphatase 66 U/L (38-126); Anion Gap 11 mmol/L; Blood Urea Nitrogen 12 mg/dL (9-20); Calcium 9.3 mg/dL (8.4-10.2); Carbon Dioxide 26 mmol/L (22-30); Chloride 103 mmol/L (98-107); Glucose 93 mg/dL (74-99); Non-African American GFR(CKD) >90 (>60 ml/min/1.73 sqM); Potassium 3.7 mmol/L (3.5-5.1); Sodium 140 mmol/L (137-145); Total Bilirubin 0.9 mg/dL (0.2-1.3); Total Protein 7.1 g/dL (6.3-8.2)
[2023-04-03] MEDS ORDERED: acetaZOLAMIDE 250 MG TAB PO STA (13:55)
[2023-04-03] MEDS ORDERED: BRIMONIDINE TARTRATE 0.2% DROPS 5 ML BTL RIGHT EYE STA (13:56)
[2023-04-03] MEDS: TIMOLOL 0.5% OPHTH DROPS 5 ML BTL RIGHT EYE SCH ×3 (14:31→16:27)
--- NOTE | 2023-04-03 15:00 | CT ---
EXAMINATION TYPE: CT angio head neck DATE OF EXAM: 04/03/2023 2:18 PM COMPARISON: CT head 11/03/2011. CLINICAL INDICATION:Male, 42 years old with history of headache; PHH, right vision loss, headaches TECHNIQUE: CT head without contrast was first performed. Then, helical CT angiogram of the head and neck was obtained with contrast. Axial sagittal coronal im ages are supplemented with 3D reconstructions which were post-processed at an independent workstation . NASCET criteria used. Contrast used: 65 mL of Isovue 370 with IV Contrast, Oral contrast used: None. CT DLP: 1953.8 mGycm, Automated exposure control for dose reduction was used. FINDINGS: CT head: Stable mild asymmetry in the appearance of the lateral ventricles, the right is overall slightly smal ler than the left, likely developmental variation. Ventricles are otherwise stable without evidence f or hydrocephalus. No mass effect or midline shift. Basilar cisterns are patent. No evidence of parenchymal or extra-axial hemorrhage, loss of mon/white matter distinction or sulcal effacement. There is no significant atrophy. No significant white matter abnormality by CT. No acute extra-axial abnormality. Osseous structures appear intact. The visualized paranasal sinuses and mastoid air cells are clear. No acute soft tissue finding. Subcutaneous soft tissue nodule in the posterior scalp on the right momo r the vertex measures 11 mm and has a central calcification, etiology indeterminate correlate with ph ysical exam. Scattered small scalp calcifications are also seen. Orbits are symmetric and appear intact. There appears to be mild bilateral exotropia correlate clinic ally. CTA Neck: A 3 vessel aortic arch is shown. There is no significant atherosclerotic plaque in the aortic arch o r the origins of the branch vessels. Right carotid system: The common carotid is patent. No significant atherosclerosis. There is no hemod ynamically significant diameter stenosis, dissection, nor pseudoaneurysm present. Left carotid system: The common carotid is patent. No significant atherosclerosis. There is no hemody namically significant diameter stenosis, dissection, nor pseudoaneurysm present. Vertebral arteries: There is no significant atherosclerotic plaque or narrowing at the origins of the vertebral arteries. The vertebrals are then otherwise patent to the skull base. The left vertebral artery is dominant. Other: Visualized neck soft tissues show no concerning abnormality. Cervical spine appears intact. Mi nimal degenerative disc change at the C5-C6 level. Mild reversal of normal cervical lordosis can be s een with pain, positioning, spasm. The craniocervical junction and cervical spinal canal appear widel y patent. Imaged portions of the lung apices are normal. There is prominence of the visualized upper mediastinal and left more than right extrapleural fat. CTA Head: ICAs patent at the skull base. No significant calcifications of the cavernous portions of the ICAs. S upraclinoid ICAs, bifurcations, ACAs, MCAs appear normally patent. Anterior communicating artery is s een and appears within normal limits. The intracranial vertebral arteries enhance normally. The left vertebral is dominant and somewhat tor tuous to the right. The right vertebral probably essentially ends as the PICA. Basilar artery is leyva nt and unremarkable. Normal basilar bifurcation without evidence of aneurysm. Visualized proximal PRODUCT LINE MANAGER s are patent. A right posterior communicating artery is not definitely seen. A left posterior communicating artery is not definitely seen. No intracranial large vessel occlusion, hemodynamically significant stenosis, aneurysm, dissection, o r arteriovenous malformation is shown. The dural venous sinuses appear grossly patent without evidence of thrombosis. IMPRESSION: Noncontrast CT head: 1. No acute intracranial abnormality. 2. Subcutaneous 11 mm soft tissue nodule in the posterior scalp on the right near the vertex, etiolo gy indeterminate. Please correlate with physical exam. 3. Orbits appear symmetric and intact, without evidence of an acute abnormality. There appears to be mild bilateral exotropia, please correlate clinically. CTA neck: No dissection, hemodynamically significant stenosis, or pseudoaneurysm detected in the carotid or saeid tebral arteries in the neck. CTA head: No intracranial large vessel occlusion, significant stenosis, or sizable aneurysm detected in the wayne its of CTA.
[2023-04-03 17:06] VITALS: BP 122/79; PULSE 74; RESP 18; TEMP 98.2
== END 2023-04-03 16:58 | disposition home or self-care (01) ==
LOC: EC 11:29
DX: H40.211 Acute angle-closure glaucoma, right eye (principal); I10 Essential (primary) hypertension; Z88.1 Allergy status to other antibiotic agents
CPT/HCPCS: 36415; 80053; 85025; 70496; 70498; 99284; 96374; J1170; Q9967